=== PATIENT | male | born 1995 | race Caucasian/White ===

== ENCOUNTER 2019-12-27 20:19 | Emergency (ER) | payer OTHER ==
--- NOTE | 2019-12-27 20:23 | PDOC ---
Rapid Medical Evaluation Chief Complaint: Wound Time Seen by Provider: 12/27/19 20:22 Medical Evaluation: 12/27/19 20:22 24 year old male with left side buttocks abscess worsening over the last 3 weeks. denies fever/ chills No pmhx A: abscess P: patient to the ER for further management of care. Discharge Disposition - Diagnosis Abscess - Referrals - Patient Instructions - Post Discharge Activity
[2019-12-27 20:25] VITALS: BP 143/96; PULSE 110; TEMP 98.4; BMI 39.7
[2019-12-27] MEDS ORDERED: CEPHALEXIN MONOHYDRATE 500 MG CAPSULE (UD) PO ONE (21:56)
[2019-12-27] MEDS ORDERED: IBUPROFEN 600 MG TABLET (FP) PO ONE ×2 (21:56→22:06)
--- NOTE | 2019-12-27 21:56 | PDOC ---
History of Present Illness - General Chief Complaint: Wound Stated Complaint: ABSCESS Time Seen by Provider: 12/27/19 20:22 History Source: Patient Exam Limitations: No Limitations - History of Present Illness Initial Comments: 12/27/19 21:50 24-year-old male with history of asthma and hemorrhoids presents complaining of tender lump to left buttocks for 3 weeks. Pain has worsened over the past 4 days. Patient followed up with PCP 2 days ago and was prescribed ointment for hemorrhoids. Denies fever, chills, abdominal pain, changes in stool color, diarrhea, vomiting, urinary symptoms or any other complaint. ROS: GENERAL/CONSTITUTIONAL: No fever, chills, weakness, dizziness HEAD, EYES, EARS, NOSE AND THROAT: No changes in vision, No ear pain or discharge, No sore throat CARDIOVASCULAR: No chest pain RESPIRATORY: No shortness of breath or cough GASTROINTESTINAL: Left buttock pain, no nausea, vomiting, diarrhea or constipation GENITOURINARY: No dysuria MUSCULOSKELETAL: No neck or back pain SKIN: No rash NEUROLOGIC: No headache, vertigo, loss of consciousness, or loss of sensation PE: GENERAL: well-appearing, NAD HEAD: NCAT EYES: Pupils equal, round and reactive to light, sclera anicteric, conjunctiva clear ENT: pharynx: no erythema, no exudate, uvula midline NECK: supple CHEST: nontender RESP: clear, no w/r/r CARDIO: rrr, no m/g/r ABD: +BS, soft, nontender, non distended Rectal: 1 small nonthrombosed flesh colored hemorrhoid, approximately 5 cm x 4 cm indurated, tender, warm, nonerythematous area to inner left buttock, no active drainage or bleeding BACK: no midline spinal ttp, no CVAT EXTREMITIES: Normal range of motion, no edema NEUROLOGICAL: Normal speech, normal gait SKIN: Warm, Dry Is this a multiple visit Asthma Patient?: No Past History - Past Medical History Allergies/Adverse Reactions: Allergies Allergy/AdvReac Type Severity Reaction Status Date / Time No Known Allergies Allergy Verified 12/27/19 20:24 Home Medications: Ambulatory Orders Cephalexin Monohydrate [Keflex -] 500 mg PO Q8H 10 Days #30 capsule 12/27/19 COPD: No - Psycho Social/Smoking Cessation Hx Smoking History: Never smoked *Physical Exam - Vital Signs Last Vital Signs Temp Pulse Resp BP Pulse Ox 98.4 F 110 H 18 143/96 99 12/27/19 20:22 12/27/19 20:22 12/27/19 20:22 12/27/19 20:22 12/27/19 20:22 Medical Decision Making - Medical Decision Making 12/27/19 21:53 24-year-old male with abscess to left inner buttock. Denies fever, chills. P.o. ibuprofen will send with prescription for Keflex Advised warm soaks Follow-up with GI this week If you develop fever, chills, worsening pain or swelling return to the ED immediately for reexamination Discharge - Discharge Information Problems reviewed: Yes Clinical Impression/Diagnosis: Abscess Condition: Stable Disposition: HOME - Admission No - Additional Discharge Information Prescriptions: Cephalexin Monohydrate [Keflex -] 500 mg PO Q8H 10 Days #30 capsule - Follow up/Referral Referrals: Martha Rodriguez NP [Primary Care Provider] - - Patient Discharge Instructions Additional Instructions: Take cephalexin 500 mg every 8 hours for 10 days Sits in warm sitz bath with Epson salt If you develop fever, chills, worsening pain or any concerning symptoms return to the ED immediately Follow-up with your GI doctor this week - Post Discharge Activity
[2019-12-27] MEDS ORDERED: CEPHALEXIN MONOHYDRATE 500 MG CAPSULE (UD) ONE (22:06)
== END 2019-12-27 22:15 | disposition home or self-care (01) ==
LOC: JERFT 20:19
DX: L02.31 Cutaneous abscess of buttock (principal); K64.8 Other hemorrhoids; Z87.09 Personal history of other diseases of the respiratory system
CPT/HCPCS: 99281-25

== ENCOUNTER 2019-12-29 14:44 | Emergency (ER) | payer OTHER ==
[2019-12-29 15:00] VITALS: BP 145/91; PULSE 18; TEMP 97.6; BMI 39.5
[2019-12-29] MEDS ORDERED: KETOROLAC TROMETHAMINE 30 MG/1 ML VIAL IM ONE (15:22)
[2019-12-29] MEDS ORDERED: KETOROLAC TROMETHAMINE 30 MG/1 ML VIAL ONE (15:26)
--- NOTE | 2019-12-29 15:30 | PDOC ---
History of Present Illness - General Chief Complaint: Abscess Boil Stated Complaint: PAIN Time Seen by Provider: 12/29/19 15:03 History Source: Patient Exam Limitations: Clinical Condition - History of Present Illness Initial Comments: 12/29/19 15:22 Obese male with no significant past medical history present for reassessment of abscess to left gluteal which has been persisting for 3 weeks. Patient reported increased pain to left gluteal when sitting. Patient was seen 2 days ago for symptoms which exam done by prior provider showed 4 x 4 hard induration to left gluteal with no clear abscess erythema. Patient was also seen by PCP for same symptoms over a week ago and prescribed hemorrhoids cream for hemorrhoid as no clear abscess was seen by PCP either. Denies fever, chills reports chronic constipation. Patient was advised to follow-up with GI for symptoms but did not follow-up. Denies any other symptoms. Report taking Motrin 600 mg this morning for pain Timing/Duration: reports: other (3 weeks) Past History - Past Medical History Allergies/Adverse Reactions: Allergies Allergy/AdvReac Type Severity Reaction Status Date / Time No Known Allergies Allergy Verified 12/29/19 14:57 Home Medications: Ambulatory Orders Cephalexin Monohydrate [Keflex -] 500 mg PO Q8H 10 Days #30 capsule 12/27/19 Ibuprofen 800 mg PO Q8H PRN #20 tablet 12/29/19 Lidocaine 5% Top. Ointment [Xylocaine 5% Top. Ointment -] 1 applic TP TID PRN # 1 tube 12/29/19 Sulfamethoxazole/Trimethoprim [Bactrim Ds -] 1 tab PO BID #14 tablet 12/29/19 COPD: No - Psycho Social/Smoking Cessation Hx Smoking History: Never smoked Review of Systems - Review of Systems Able to Perform ROS?: Yes Is the patient limited Japanese proficient: No Constitutional: No: Chills, Fever, Malaise HEENTM: No: Symptoms Reported, See HPI, Eye Pain, Blurred Vision, Tearing, Recent change in vision, Double Vision, Cataracts, Ear Pain, Ocular Prothesis, Ear Discharge, Nose Pain, Nose Congestion, Tinnitus, Nose Bleeding, Hearing Loss , Throat Pain, Throat Swelling, Mouth Pain, Dental Problems, Difficulty Swallowing, Mouth Swelling, Other Respiratory: No: Symptoms reported, See HPI, Cough, Orthopnea, Shortness of Breath, SOB with Exertion, SOB at Rest, Stridor, Wheezing, Productive cough, Hemoptysis, Other Cardiac (ROS): No: Symptoms Reported, See HPI, Chest Pain, Edema, Irregular Heart Rate, Lightheadedness, Palpitations, Syncope, Chest Tightness, Other ABD/GI: No: Symptoms Reported, See HPI, Nausea, Vomiting : Yes: Symptoms Reported, See HPI, Pain (left inner gluteal pain), Other ( left gluteal pain) Integumentary: Yes: Symptoms Reported, See HPI, Lumps (left gluteal abscess) Neurological: No: Symptoms reported All Other Systems: Reviewed and Negative *Physical Exam - Vital Signs Last Vital Signs Temp Pulse Resp BP Pulse Ox 97.6 F 18 L 18 145/91 100 12/29/19 14:57 12/29/19 14:57 12/29/19 14:57 12/29/19 14:57 12/29/19 14:57 - Physical Exam General Appearance: Yes: Nourished, Appropriately Dressed, Apparent Distress, Mild Distress HEENT: positive: Normal ENT Inspection Neck: positive: Supple Respiratory/Chest: positive: Lungs Clear, Normal Breath Sounds. negative: Respiratory Distress, Accessory Muscle Use Musculoskeletal: positive: Normal Inspection Extremity: positive: Normal Inspection Integumentary: positive: Normal Color, Other (mild 4 x 4 fluctuation area with mild skin irritations to left medial gluteal area. no clear abscess. no skin erythema. ). negative: Erythema Neurologic: positive: Fully Oriented, Alert, Normal Response Medical Decision Making - Medical Decision Making 12/29/19 15:26 Obese male with no significant past medical history present for reassessment of abscess to left gluteal which has been persisting for 3 weeks. Patient reported increased pain to left gluteal when sitting. Patient was seen 2 days ago for symptoms which exam done by prior provider showed 4 x 4 hard induration to left gluteal with no clear abscess erythema. Patient was also seen by PCP for same symptoms over a week ago and prescribed hemorrhoids cream for hemorrhoid as no clear abscess was seen by PCP either. Denies fever, chills reports chronic constipation. Patient was advised to follow-up with GI for symptoms but did not follow-up. Denies any other symptoms. Report taking Motrin 600 mg this morning for pain Exam significant for small area of skin irritation to inner left gluteal to the medial side with 4 x 4 area of soft fluctuant induration with no clear abscess. No skin erythema. Mild excoriation from glue to rubbing on each other to inner left gluteal area. small 1mm external non-thrombosed hemorrhoid. Given no clear abscess, patient will be discharged home to continue previous prescribed Keflex and will add Bactrim antibiotics with advised to continue sitz bath and warm compress with GI follow-up as instructed Discharge - Discharge Information Problems reviewed: Yes Clinical Impression/Diagnosis: Abscess Condition: Stable Disposition: HOME - Admission No - Additional Discharge Information Prescriptions: Ibuprofen 800 mg PO Q8H PRN #20 tablet PRN Reason: pain Lidocaine 5% Top. Ointment [Xylocaine 5% Top. Ointment -] 1 applic TP TID PRN # 1 tube PRN Reason: pain Sulfamethoxazole/Trimethoprim [Bactrim Ds -] 1 tab PO BID #14 tablet - Follow up/Referral Referrals: Justin Falcon MD [Staff Physician] - - Patient Discharge Instructions Patient Printed Discharge Instructions: DI for Anal Abscess Additional Instructions: Continue with previous prescribed antibiotics and take this new prescribed antibiotics. Continue with heat to the area as needed for pain. Use prescribed medication as needed on the skin for pain and follow-up with your GI doctor as instructed - Post Discharge Activity
== END 2019-12-29 15:39 | disposition home or self-care (01) ==
LOC: JERFT 14:44
PROC: 3E0233Z Introduction of Anti-inflammatory into Muscle, Percutaneous Approach (ICD-10-PCS; principal; 2019-12-29)
DX: L02.31 Cutaneous abscess of buttock (principal)
CPT/HCPCS: 96372; 99284-25